=== PATIENT | male | born 1980 | race Caucasian/White ===

== ENCOUNTER 2016-11-27 13:56 | Inpatient (IN) | payer MEDICAID ==
[~2016-11-27] VITALS: Ht 185.4 cm; Wt 90.1 kg
[~2016-11-27 13:56] MED LIST: QUET200T PO
[2016-11-27] MEDS ORDERED: PROMETHAZINE HCL 25 MG TABLET PO PRN (16:30)
[2016-11-27] MEDS ORDERED: MAGNESIUM HYDROXIDE SUSPENSION 30 ML UDCUP PO PRN (16:30)
[2016-11-27] MEDS ORDERED: TUBERCULIN, PURIFIED PROTEIN DERIVATIVE 5 TU/0.1 ML SYG ID ONE (16:30)
[2016-11-27] MEDS ORDERED: ACETAMINOPHEN 325 MG TABLET PO PRN (16:30)
[2016-11-27] MEDS ORDERED: MAG HYDROX/AL HYDROX/SIMETH ES 30 ML SUSPENSION UDCUP PO PRN (16:30)
[2016-11-27] MEDS ORDERED: ZOLPIDEM TARTRATE 10 MG TABLET PO PRN (16:30)
[2016-11-27] MEDS ORDERED: GuaiFENesin/D-METHORPHAN [SUGAR-FREE] 200-20MG/10 ML SYRUP UDCUP PO PRN (16:30)
[2016-11-27] MEDS ORDERED: HydrOXYzine PAMOATE 50 MG CAPSULE PO PRN (16:30)
[2016-11-27] MEDS ORDERED: LOPERAMIDE HCL 2 MG CAPSULE PO PRN (16:30)
[2016-11-27] MEDS ORDERED: QUEtiapine FUMARATE 100 MG TABLET PO PRN (16:30)
[2016-11-27] MEDS ORDERED: INFLUENZA VIRUS VACCINE QVS 2016-17 (3YR+)/PF 60 MCG/0.5 ML SYRINGE IM ONE (17:00)
[2016-11-27 17:20] VITALS: BP 115/76
[2016-11-27] MEDS: THIAMINE HCL 100 MG TABLET PO SCH (17:23)
[2016-11-27] MEDS ORDERED: QUEtiapine FUMARATE 200 MG TABLET PO SCH (21:00)
[2016-11-28 05:30] VITALS: BP 123/75
[2016-11-28 08:02] LABS: BASOPHILS # (AUTO) 0.02 K/uL (0.00-0.20); BASOPHILS % (AUTO) 0.3 % (0.0-2.0); EOSINOPHILS # (AUTO) 0.09 K/uL (0.00-0.70); EOSINOPHILS % (AUTO) 1.15 % (1.0-6.0); HEMATOCRIT 44.6 % (41-53); HEMOGLOBIN 14.6 g/dL (13.5-17.5); LYMPHOCYTES # (AUTO) 1.8 K/uL (1.0-4.8); LYMPHOCYTES % (AUTO) 22.8 % (22.0-44.0); MEAN CORPUSCULAR HEMOGLOBIN 31.5 pg (26.0-34.0); MEAN CORPUSCULAR HGB CONC 32.7 G/dL (31.0-37.0); MEAN CORPUSCULAR VOLUME 96 fL (80-100); MONOCYTES # (AUTO) 0.8 K/uL (0.1-1.0); MONOCYTES % (AUTO) 9.6 % (2.0-9.0); NEUTROPHILS # (AUTO) 5.3 K/uL (1.8-7.7); NEUTROPHILS % (AUTO) 66.2 % (40.0-70.0); PLATELET COUNT (AUTO) 191 K/uL (150-450); RED BLOOD CELL COUNT(AUTO) 4.63 MIL/uL (4.50-5.90); RED CELL DISTRIBUTION WIDTH 14.4 % (11.5-14.5)
[2016-11-28 08:56] LABS: ALANINE AMINOTRANSFERASE 21 U/L (12-78); ALBUMIN 3.5 g/dL (3.4-5.0); ANION GAP 7 mmol/L (8-16); ASPARTATE AMINOTRANSFERASE 16 U/L (15-37); BILIRUBIN,TOTAL 0.4 mg/dL (0.1-1.0); CARBON DIOXIDE 30 mmol/L (22-29); CHLORIDE 104 mmol/L (98-107); CHOL/HDL RATIO 2.8 (4.2-7.3); CREATININE 1.09 mg/dL (0.60-1.30); GLOMERULAR FILTR. RATE CALC > 60 mL/min (>60); POTASSIUM 3.9 mmol/L (3.5-5.1); SODIUM SERUM 141 mmol/L (136-145); THYROID STIMULATING HORMONE 1.36 uIU/mL (0.36-3.74); TOTAL PROTEIN, SERUM 6.8 g/dL (6.4-8.2); UREA NITROGEN, BLOOD 13 mg/dL (7-18)
[2016-11-28] MEDS: THIAMINE HCL 100 MG TABLET PO SCH ×2 (09:05→16:06)
[2016-11-28] MEDS: FOLIC ACID 1 MG TABLET PO SCH (09:05)
[2016-11-28] MEDS: MULTIVITAMINS WITH MINERALS, THERAPEUTIC TABLET PO SCH (09:05)
[2016-11-28 09:35] VITALS: BP 114/76
[2016-11-28] MEDS ORDERED: RisperiDONE 1 MG TABLET PO PRN (10:15)
[2016-11-28] MEDS ORDERED: RisperiDONE 1 MG TABLET PO ONE (10:15)
[2016-11-28] MEDS: LORazepam 2 MG TABLET PO PRN ×3 (11:03→21:03)
[2016-11-28] MEDS ORDERED: RisperiDONE 1 MG TABLET PO SCH (13:00)
[2016-11-28] MEDS: MUPIROCIN CALCIUM 2% 15 GM CREAM TP SCH (16:06)
[2016-11-28 18:25] VITALS: BP 135/66
[2016-11-28] MEDS ORDERED: RisperiDONE 2 MG TABLET PO SCH (21:00)
[2016-11-29 00:31] VITALS: BP 106/60
[2016-11-29 08:41] VITALS: BP 104/60
[2016-11-29] MEDS: MULTIVITAMINS WITH MINERALS, THERAPEUTIC TABLET PO SCH (09:42)
[2016-11-29] MEDS: FOLIC ACID 1 MG TABLET PO SCH (09:42)
[2016-11-29] MEDS: THIAMINE HCL 100 MG TABLET PO SCH (09:42)
[2016-11-29] MEDS: MUPIROCIN CALCIUM 2% 15 GM CREAM TP SCH (09:45)
[2016-11-29] MEDS ORDERED: RISP2 PO (09:54)
[2016-11-29] MEDS ORDERED: MUPI15CR12 TP (09:54)
[2016-11-29] MEDS ORDERED: CEPH500 PO (09:54)
== END 2016-11-29 13:00 | disposition home or self-care (01) | DRG 750 ==
LOC: B2S 16:42
PROVIDERS: ADMIT Psychiatry & Neurology Psychiatry; ATTEND Psychiatry & Neurology Psychiatry
DX: F20.0 Paranoid schizophrenia (principal); R45.851 Suicidal ideations; Z91.19 Patient's noncompliance with other medical treatment and regimen; F12.90 Cannabis use, unspecified, uncomplicated; S81.801A Unspecified open wound, right lower leg, initial encounter; Z98.52 Vasectomy status; Z28.21 Immunization not carried out because of patient refusal; Z72.89 Other problems related to lifestyle; Z71.51 Drug abuse counseling and surveillance of drug abuser; Z71.41 Alcohol abuse counseling and surveillance of alcoholic; Z79.899 Other long term (current) drug therapy; Z81.8 Family history of other mental and behavioral disorders; X58.XXXA Exposure to other specified factors, initial encounter; Y93.89 Activity, other specified; Y92.89 Other specified places as the place of occurrence of the external cause; Y99.8 Other external cause status
CPT/HCPCS: 83036; 84439; 84443; 86592

== ENCOUNTER 2016-12-01 17:58 | Inpatient (IN) | payer MEDICAID ==
[~2016-12-01] VITALS: Ht 185.4 cm; Wt 89.8 kg
[~2016-12-01 17:58] MED LIST changes: +CEPH500 PO; +MUPI15CR12 TP; -QUET200T PO; +RISP2 PO
[2016-12-02] MEDS ORDERED: ZOLPIDEM TARTRATE 10 MG TABLET PO PRN (02:15)
[2016-12-02 03:20] VITALS: BP 139/77
[2016-12-02] MEDS ORDERED: INFLUENZA VIRUS VACCINE QVS 2016-17 (3YR+)/PF 60 MCG/0.5 ML SYRINGE IM ONE (04:15)
[2016-12-02 05:55] VITALS: BP 114/72
[2016-12-02] MEDS: LORazepam 2 MG TABLET PO PRN ×2 (06:00→12:38)
[2016-12-02 08:38] VITALS: BP 116/70
[2016-12-02] MEDS ORDERED: IBUPROFEN 600 MG TABLET PO PRN (09:00)
[2016-12-02] MEDS ORDERED: CloNIDine HCL 0.1 MG TABLET PO PRN (09:00)
[2016-12-02] MEDS ORDERED: BACITRACIN 28.4 GM OINTMENT TP PRN (09:00)
[2016-12-02] MEDS ORDERED: BENZOCAINE/MENTHOL LOZENGE MM PRN (09:00)
[2016-12-02] MEDS ORDERED: ONDANSETRON HCL 4 MG TABLET PO PRN (09:00)
[2016-12-02] MEDS ORDERED: PETROLATUM,WHITE 71 GM JELLY TP PRN (09:00)
[2016-12-02] MEDS ORDERED: MAGNESIUM HYDROXIDE SUSPENSION 30 ML UDCUP PO PRN (09:00)
[2016-12-02] MEDS ORDERED: ACETAMINOPHEN 325 MG TABLET PO PRN (09:00)
[2016-12-02] MEDS ORDERED: ALBUTEROL SULFATE HFA 90 MCG/PUFF 8 GM INHALER IH PRN (09:00)
[2016-12-02] MEDS ORDERED: MAG HYDROX/AL HYDROX/SIMETH ES 30 ML SUSPENSION UDCUP PO PRN (09:00)
[2016-12-02] MEDS ORDERED: LOPERAMIDE HCL 2 MG CAPSULE PO PRN (09:00)
[2016-12-02] MEDS: CEPHALEXIN MONOHYDRATE 500 MG CAPSULE PO SCH ×2 (10:12→16:38)
[2016-12-02 16:11] VITALS: BP 104/63
[2016-12-02] MEDS: DiphenhydrAMINE HCL 25 MG CAPSULE PO SCH (16:38)
[2016-12-02] MEDS: ILOPERIDONE 2 MG TABLET PO SCH (16:39)
[2016-12-03 06:46] VITALS: BP 120/84
[2016-12-03 08:45] VITALS: BP 103/66
[2016-12-03] MEDS: ILOPERIDONE 2 MG TABLET PO SCH ×2 (10:28→16:02)
[2016-12-03] MEDS: CEPHALEXIN MONOHYDRATE 500 MG CAPSULE PO SCH ×2 (10:29→16:02)
[2016-12-03] MEDS: DiphenhydrAMINE HCL 25 MG CAPSULE PO SCH ×2 (10:29→16:02)
[2016-12-03] MEDS: LORazepam 2 MG TABLET PO PRN ×2 (10:31→18:13)
[2016-12-03 16:53] VITALS: BP 110/65
[2016-12-04 01:06] VITALS: BP 110/68
[2016-12-04 08:37] VITALS: BP 136/80
[2016-12-04] MEDS: CEPHALEXIN MONOHYDRATE 500 MG CAPSULE PO SCH ×2 (08:42→16:37)
[2016-12-04] MEDS: ILOPERIDONE 2 MG TABLET PO SCH (08:42)
[2016-12-04] MEDS: DiphenhydrAMINE HCL 25 MG CAPSULE PO SCH ×2 (08:42→16:37)
[2016-12-04] MEDS: LORazepam 2 MG TABLET PO PRN ×2 (12:41→20:02)
[2016-12-04] MEDS ORDERED: HydrOXYzine PAMOATE 50 MG CAPSULE PO PRN (14:45)
[2016-12-04] MEDS ORDERED: LOPERAMIDE HCL 2 MG CAPSULE PO PRN (14:45)
[2016-12-04] MEDS ORDERED: GuaiFENesin/D-METHORPHAN [SUGAR-FREE] 200-20MG/10 ML SYRUP UDCUP PO PRN (14:45)
[2016-12-04 16:22] VITALS: BP 103/70
[2016-12-04] MEDS: THIAMINE HCL 100 MG TABLET PO SCH (16:37)
[2016-12-04] MEDS: ILOPERIDONE 4 MG TABLET PO SCH (21:46)
[2016-12-05 06:58] VITALS: BP 121/68
[2016-12-05 08:12] VITALS: BP 105/62
[2016-12-05] MEDS ORDERED: MULTIVITAMINS WITH MINERALS, THERAPEUTIC TABLET PO SCH (09:00)
[2016-12-05] MEDS ORDERED: FOLIC ACID 1 MG TABLET PO SCH (09:00)
[2016-12-05] MEDS ORDERED: NALTREXONE HCL 50 MG TABLET PO SCH (09:00)
[2016-12-05] MEDS: DiphenhydrAMINE HCL 25 MG CAPSULE PO SCH (10:11)
[2016-12-05] MEDS: ILOPERIDONE 4 MG TABLET PO SCH (10:11)
[2016-12-05] MEDS: THIAMINE HCL 100 MG TABLET PO SCH (10:12)
[2016-12-05] MEDS: CEPHALEXIN MONOHYDRATE 500 MG CAPSULE PO SCH (10:12)
[2016-12-05] MEDS ORDERED: DIPH25 PO (12:34)
[2016-12-05] MEDS ORDERED: ILOP4TAB2 PO (12:34)
== END 2016-12-05 15:30 | disposition home or self-care (01) | DRG 750 ==
LOC: B2S 12-02 02:17
PROVIDERS: ATTEND Psychiatry & Neurology Psychiatry
PROC: GZ51ZZZ Individual Psychotherapy, Behavioral (ICD-10-PCS; principal; 2016-12-05)
DX: F20.0 Paranoid schizophrenia (principal); R45.851 Suicidal ideations; Z91.19 Patient's noncompliance with other medical treatment and regimen; F17.200 Nicotine dependence, unspecified, uncomplicated; G47.00 Insomnia, unspecified; K59.00 Constipation, unspecified; L08.9 Local infection of the skin and subcutaneous tissue, unspecified; F41.9 Anxiety disorder, unspecified; W57.XXXA Bitten or stung by nonvenomous insect and other nonvenomous arthropods, initial encounter; Z78.9 Other specified health status; Z98.52 Vasectomy status; Z56.0 Unemployment, unspecified; Z28.21 Immunization not carried out because of patient refusal; Y93.89 Activity, other specified; Y92.89 Other specified places as the place of occurrence of the external cause; Y99.8 Other external cause status; Z79.899 Other long term (current) drug therapy
CPT/HCPCS: 87081

== ENCOUNTER 2017-02-03 10:46 | Inpatient (IN) | payer MEDICAID ==
[~2017-02-03] VITALS: Ht 185.4 cm; Wt 90.4 kg
[~2017-02-03 10:46] MED LIST changes: +DIPH25 PO; +ILOP4TAB2 PO; -MUPI15CR12 TP; -RISP2 PO
[2017-02-03] MEDS ORDERED: LOPERAMIDE HCL 2 MG CAPSULE PO PRN (13:00)
[2017-02-03] MEDS ORDERED: MAGNESIUM HYDROXIDE SUSPENSION 30 ML UDCUP PO PRN (13:00)
[2017-02-03] MEDS ORDERED: MAG HYDROX/AL HYDROX/SIMETH ES 30 ML SUSPENSION UDCUP PO PRN (13:00)
[2017-02-03 13:12] VITALS: BP 115/78
[2017-02-03] MEDS ORDERED: LORA2TAB2 PO (14:02)
[2017-02-03] MEDS ORDERED: CLON1 PO (14:02)
[2017-02-03] MEDS ORDERED: QUET200T PO (14:02)
[2017-02-03] MEDS ORDERED: PNEUMOCOCCAL VACCINE POLYVALENT 0.5 ML VIAL [PPSV23] IM ONE (16:15)
[2017-02-03 17:22] VITALS: BP 133/91
[2017-02-03] MEDS ORDERED: ILOPERIDONE 4 MG TABLET PO SCH (21:00)
[2017-02-04 05:24] VITALS: BP 128/81
[2017-02-04 08:12] LABS: BASOPHILS # (AUTO) 0.03 K/uL (0.00-0.20); BASOPHILS % (AUTO) 0.3 % (0.0-2.0); EOSINOPHILS # (AUTO) 0.04 K/uL (0.00-0.70); EOSINOPHILS % (AUTO) 0.46 % (1.0-6.0); HEMATOCRIT 47.2 % (41-53); HEMOGLOBIN 15.7 g/dL (13.5-17.5); LYMPHOCYTES # (AUTO) 2.3 K/uL (1.0-4.8); MEAN CORPUSCULAR HEMOGLOBIN 31.4 pg (26.0-34.0); MEAN CORPUSCULAR HGB CONC 33.3 G/dL (31.0-37.0); MEAN CORPUSCULAR VOLUME 94 fL (80-100); MONOCYTES # (AUTO) 0.9 K/uL (0.1-1.0); MONOCYTES % (AUTO) 9.5 % (2.0-9.0); NEUTROPHILS % (AUTO) 64.7 % (40.0-70.0); PLATELET COUNT (AUTO) 172 K/uL (150-450); RED BLOOD CELL COUNT(AUTO) 5.01 MIL/uL (4.50-5.90); WHITE BLOOD COUNT (AUTO) 9.3 K/uL (4.5-11.0)
[2017-02-04 08:26] VITALS: BP 103/71
[2017-02-04 09:13] LABS: ALANINE AMINOTRANSFERASE 25 U/L (12-78); ALBUMIN 3.9 g/dL (3.4-5.0); ANION GAP 6 mmol/L (8-16); ASPARTATE AMINOTRANSFERASE 18 U/L (15-37); BILIRUBIN,TOTAL 0.7 mg/dL (0.1-1.0); CALCIUM, TOTAL 9.3 mg/dL (8.8-10.5); CARBON DIOXIDE 31 mmol/L (22-29); CHLORIDE 103 mmol/L (98-107); CHOL/HDL RATIO 3.4 (4.2-7.3); CREATININE 1.19 mg/dL (0.60-1.30); GLOMERULAR FILTR. RATE CALC > 60 mL/min (>60); POTASSIUM 3.8 mmol/L (3.5-5.1); SODIUM SERUM 140 mmol/L (136-145); THYROID STIMULATING HORMONE 2.75 uIU/mL (0.36-3.74); TOTAL PROTEIN, SERUM 7.2 g/dL (6.4-8.2); UREA NITROGEN, BLOOD 10 mg/dL (7-18)
[2017-02-04] MEDS: LORazepam 2 MG TABLET PO PRN (10:57)
[2017-02-04] MEDS: ILOPERIDONE 4 MG TABLET PO SCH ×2 (12:03→21:08)
[2017-02-04 16:05] VITALS: BP 107/68
[2017-02-04] MEDS ORDERED: ACETAMINOPHEN 325 MG TABLET PO PRN (18:00)
[2017-02-04] MEDS ORDERED: IBUPROFEN 600 MG TABLET PO PRN (18:00)
[2017-02-04 18:02] VITALS: BP 124/69
[2017-02-04] MEDS: ZOLPIDEM TARTRATE 10 MG TABLET PO PRN (22:31)
[2017-02-05 05:36] VITALS: BP 119/79
[2017-02-05] MEDS: ILOPERIDONE 4 MG TABLET PO SCH ×2 (08:14→20:22)
[2017-02-05] MEDS: LORazepam 2 MG TABLET PO PRN ×3 (08:14→21:26)
[2017-02-05 08:29] VITALS: BP 112/69
[2017-02-05 16:00] VITALS: BP 117/73
[2017-02-05] MEDS: ZOLPIDEM TARTRATE 10 MG TABLET PO PRN (20:22)
[2017-02-05] MEDS ORDERED: ACETAMINOPHEN 325 MG TABLET PO PRN (21:00)
[2017-02-05] MEDS ORDERED: BENZOCAINE/MENTHOL LOZENGE MM PRN (21:00)
[2017-02-05] MEDS ORDERED: CloNIDine HCL 0.1 MG TABLET PO PRN (21:00)
[2017-02-05] MEDS ORDERED: PETROLATUM,WHITE 71 GM JELLY TP PRN (21:00)
[2017-02-05] MEDS ORDERED: ONDANSETRON HCL 4 MG TABLET PO PRN (21:00)
[2017-02-05] MEDS ORDERED: MAG HYDROX/AL HYDROX/SIMETH ES 30 ML SUSPENSION UDCUP PO PRN (21:00)
[2017-02-05] MEDS ORDERED: BACITRACIN 28.4 GM OINTMENT TP PRN (21:00)
[2017-02-05] MEDS ORDERED: LOPERAMIDE HCL 2 MG CAPSULE PO PRN (21:00)
[2017-02-05] MEDS ORDERED: MAGNESIUM HYDROXIDE SUSPENSION 30 ML UDCUP PO PRN (21:00)
[2017-02-05] MEDS ORDERED: IBUPROFEN 600 MG TABLET PO PRN (21:00)
[2017-02-05] MEDS ORDERED: ALBUTEROL SULFATE HFA 90 MCG/PUFF 8 GM INHALER IH PRN (21:00)
[2017-02-06] MEDS: LORazepam 2 MG TABLET PO PRN ×2 (07:09→13:43)
[2017-02-06 07:20] VITALS: BP 127/74
[2017-02-06 08:13] VITALS: BP 113/62
[2017-02-06] MEDS ORDERED: DOCUSATE SODIUM 100 MG CAPSULE PO SCH (09:00)
[2017-02-06] MEDS ORDERED: OMEPRAZOLE 20 MG CAPSULE PO SCH (09:00)
[2017-02-06] MEDS: ILOPERIDONE 4 MG TABLET PO SCH (09:20)
[2017-02-06] MEDS ORDERED: ILOP4TAB2 PO (12:00)
[2017-02-06] MEDS ORDERED: DSS100 PO (12:00)
[2017-02-06] MEDS ORDERED: OMEP20 PO (12:00)
== END 2017-02-06 14:35 | disposition home or self-care (01) | DRG 750 ==
LOC: B3A 13:30 → EDSTATUS 14:29 → B3A 20:41
PROVIDERS: ADMIT Psychiatry & Neurology Child & Adolescent Psychiatry; ATTEND Psychiatry & Neurology Child & Adolescent Psychiatry
DX: F20.0 Paranoid schizophrenia (principal); R45.851 Suicidal ideations; F41.9 Anxiety disorder, unspecified; T14.8 Other injury of unspecified body region; K59.00 Constipation, unspecified; F12.90 Cannabis use, unspecified, uncomplicated; W57.XXXA Bitten or stung by nonvenomous insect and other nonvenomous arthropods, initial encounter; Y93.89 Activity, other specified; Y92.89 Other specified places as the place of occurrence of the external cause; Y99.8 Other external cause status; Z79.899 Other long term (current) drug therapy; Z72.89 Other problems related to lifestyle; Z71.41 Alcohol abuse counseling and surveillance of alcoholic; Z71.51 Drug abuse counseling and surveillance of drug abuser; Z28.21 Immunization not carried out because of patient refusal
CPT/HCPCS: 84439; 84443

== ENCOUNTER 2017-02-07 22:43 | Inpatient (IN) | payer MEDICAID ==
[~2017-02-07] VITALS: Ht 185.4 cm; Wt 92.1 kg
[~2017-02-07 22:43] MED LIST changes: -CEPH500 PO; -DIPH25 PO; +DSS100 PO; +OMEP20 PO
[2017-02-07 23:56] VITALS: BP 124/82
[2017-02-08 00:20] VITALS: BP 130/77
[2017-02-08] MEDS: ZOLPIDEM TARTRATE 10 MG TABLET PO PRN ×2 (00:42→20:37)
[2017-02-08] MEDS: LORazepam 2 MG TABLET PO PRN ×3 (07:04→18:48)
[2017-02-08 07:40] LABS: BASOPHILS % (AUTO) 0.3 % (0.0-2.0); EOSINOPHILS % (AUTO) 2.6 % (1.0-6.0); HEMATOCRIT 47.5 % (41-53); HEMOGLOBIN 15.3 g/dL (13.5-17.5); LYMPHOCYTES # (AUTO) 2.4 K/uL (1.0-4.8); LYMPHOCYTES % (AUTO) 28.7 % (22.0-44.0); MEAN CORPUSCULAR HEMOGLOBIN 31.2 pg (26.0-34.0); MEAN CORPUSCULAR HGB CONC 32.2 G/dL (31.0-37.0); MEAN CORPUSCULAR VOLUME 97 fL (80-100); MONOCYTES # (AUTO) 0.8 K/uL (0.1-1.0); MONOCYTES % (AUTO) 9.7 % (2.0-9.0); NEUTROPHILS # (AUTO) 4.9 K/uL (1.8-7.7); NEUTROPHILS % (AUTO) 58.7 % (40.0-70.0); PLATELET COUNT (AUTO) 172 K/uL (150-450); WHITE BLOOD COUNT (AUTO) 8.4 K/uL (4.5-11.0)
[2017-02-08 08:10] LABS: HEMOGLOBIN A1C 5.6 % (4.5-6.2)
[2017-02-08 08:23] LABS: ALANINE AMINOTRANSFERASE 27 U/L (12-78); ANION GAP 6 mmol/L (8-16); ASPARTATE AMINOTRANSFERASE 20 U/L (15-37); BILIRUBIN,TOTAL 0.6 mg/dL (0.1-1.0); CALCIUM, TOTAL 9.3 mg/dL (8.8-10.5); CARBON DIOXIDE 32 mmol/L (22-29); CHLORIDE 103 mmol/L (98-107); CHOL/HDL RATIO 2.6 (4.2-7.3); CREATININE 1.22 mg/dL (0.60-1.30); GLOMERULAR FILTR. RATE CALC > 60 mL/min (>60); POTASSIUM 3.9 mmol/L (3.5-5.1); SODIUM SERUM 141 mmol/L (136-145); THYROID STIMULATING HORMONE 3.22 uIU/mL (0.36-3.74); TOTAL PROTEIN, SERUM 7.4 g/dL (6.4-8.2); UREA NITROGEN, BLOOD 11 mg/dL (7-18)
[2017-02-08 10:25] VITALS: BP 107/73
[2017-02-08] MEDS: ILOPERIDONE 4 MG TABLET PO SCH ×2 (12:30→20:36)
[2017-02-08 17:46] VITALS: BP 113/64
[2017-02-09 06:33] VITALS: BP 103/66
[2017-02-09] MEDS: ILOPERIDONE 4 MG TABLET PO SCH (08:09)
[2017-02-09] MEDS: LORazepam 2 MG TABLET PO PRN ×3 (08:09→15:12)
[2017-02-09 08:26] VITALS: BP 102/70
[2017-02-09 16:18] VITALS: BP 112/74
== END 2017-02-09 19:35 | disposition home or self-care (01) | DRG 750 ==
LOC: B3A 23:38 → EDSTATUS 23:57
PROVIDERS: ADMIT Psychiatry & Neurology Child & Adolescent Psychiatry; ATTEND Psychiatry & Neurology Child & Adolescent Psychiatry
DX: F25.1 Schizoaffective disorder, depressive type (principal); R45.851 Suicidal ideations
CPT/HCPCS: 83036; 84439; 84443; 87081

== ENCOUNTER 2017-06-17 06:50 | Inpatient (IN) | payer MEDICAID ==
[~2017-06-17] VITALS: Ht 185.4 cm; Wt 96.6 kg
[~2017-06-17 06:50] MED LIST changes: -DSS100 PO; -OMEP20 PO
[2017-06-17 12:29] VITALS: BP 111/72
[2017-06-17 12:47] VITALS: BP 132/82
[2017-06-17] MEDS: LORazepam 2 MG TABLET PO PRN ×2 (13:19→19:09)
[2017-06-17 16:00] VITALS: BP 118/74
[2017-06-17] MEDS: ZOLPIDEM TARTRATE 10 MG TABLET PO PRN (20:32)
[2017-06-17] MEDS: ILOPERIDONE 4 MG TABLET PO SCH (20:32)
[2017-06-17] MEDS: GuaiFENesin/D-METHORPHAN [SUGAR-FREE] 200-20MG/10 ML SYRUP UDCUP PO PRN (20:32)
[2017-06-18 06:19] VITALS: BP 108/62
[2017-06-18 08:12] VITALS: BP 116/60
[2017-06-18] MEDS: OMEPRAZOLE 20 MG CAPSULE PO SCH (08:41)
[2017-06-18] MEDS: NICOTINE 21 MG/24 HOUR PATCH TD SCH (08:41)
[2017-06-18] MEDS: ILOPERIDONE 4 MG TABLET PO SCH ×2 (08:41→20:25)
[2017-06-18 09:03] LABS: ALBUMIN 4.2 g/dL (3.4-5.0); BILIRUBIN,TOTAL 0.6 mg/dL (0.1-1.0); CALCIUM, TOTAL 9.6 mg/dL (8.8-10.5); CHOL/HDL RATIO 3.8 (4.2-7.3); CREATININE 1.35 mg/dL (0.60-1.30); POTASSIUM 3.8 mmol/L (3.5-5.1); THYROID STIMULATING HORMONE 2.24 uIU/mL (0.36-3.74); TOTAL PROTEIN, SERUM 8.2 g/dL (6.4-8.2)
[2017-06-18] MEDS: GuaiFENesin/D-METHORPHAN [SUGAR-FREE] 200-20MG/10 ML SYRUP UDCUP PO PRN ×3 (09:24→20:26)
[2017-06-18] MEDS: LORazepam 2 MG TABLET PO PRN ×3 (09:24→20:25)
[2017-06-18] MEDS: LITHIUM CARBONATE 300 MG CAPSULE PO SCH (12:37)
[2017-06-18 16:00] VITALS: BP 121/74
[2017-06-18] MEDS: ZOLPIDEM TARTRATE 10 MG TABLET PO PRN (20:26)
[2017-06-19 01:40] VITALS: BP 109/70
[2017-06-19] MEDS: LORazepam 2 MG TABLET PO PRN ×2 (04:31→10:50)
[2017-06-19 08:22] LABS: BASOPHILS % (AUTO) 0.3 % (0.0-2.0); EOSINOPHILS % (AUTO) 1.2 % (1.0-6.0); HEMATOCRIT 50.1 % (41-53); LYMPHOCYTES # (AUTO) 2.4 K/uL (1.0-4.8); LYMPHOCYTES % (AUTO) 25.2 % (22.0-44.0); MEAN CORPUSCULAR VOLUME 97 fL (80-100); MONOCYTES # (AUTO) 0.7 K/uL (0.1-1.0); MONOCYTES % (AUTO) 7.7 % (2.0-9.0); NEUTROPHILS # (AUTO) 6.1 K/uL (1.8-7.7); NEUTROPHILS % (AUTO) 65.6 % (40.0-70.0); PLATELET COUNT (AUTO) 183 K/uL (150-450); RED BLOOD CELL COUNT(AUTO) 5.16 MIL/uL (4.50-5.90); RED CELL DISTRIBUTION WIDTH 13.5 % (11.5-14.5); WHITE BLOOD COUNT (AUTO) 9.3 K/uL (4.5-11.0)
[2017-06-19 08:31] VITALS: BP 109/73
[2017-06-19] MEDS: NICOTINE 21 MG/24 HOUR PATCH TD SCH (08:39)
[2017-06-19] MEDS: OMEPRAZOLE 20 MG CAPSULE PO SCH (08:39)
[2017-06-19] MEDS: ILOPERIDONE 4 MG TABLET PO SCH (08:39)
[2017-06-19] MEDS: LITHIUM CARBONATE 300 MG CAPSULE PO SCH (09:06)
[2017-06-19] MEDS: GuaiFENesin/D-METHORPHAN [SUGAR-FREE] 200-20MG/10 ML SYRUP UDCUP PO PRN (13:05)
[2017-06-19] MEDS ORDERED: OMEP20 PO (14:38)
[2017-06-19] MEDS ORDERED: LITH300C3 PO (14:38)
[2017-06-19 16:19] VITALS: BP 110/87
== END 2017-06-19 16:50 | disposition home or self-care (01) | DRG 750 ==
LOC: B3A 12:24 → EDSTATUS 12:27
PROVIDERS: ADMIT Psychiatry & Neurology Child & Adolescent Psychiatry; ATTEND Psychiatry & Neurology Child & Adolescent Psychiatry
DX: F25.0 Schizoaffective disorder, bipolar type (principal); F41.9 Anxiety disorder, unspecified; Z79.899 Other long term (current) drug therapy; R12 Heartburn
CPT/HCPCS: 84439; 84443

== ENCOUNTER 2017-10-14 08:03 | Inpatient (IN) | payer MEDICAID, OTHER ==
[~2017-10-14] VITALS: Ht 175.3 cm; Wt 97.1 kg
[~2017-10-14 08:03] MED LIST changes: +LITH300C3 PO; +OMEP20 PO; +ZOLPIDEM TARTRATE 10 MG TABLET PO PRN
[2017-10-14] MEDS ORDERED: LORA0.5T2 PO (08:38)
[2017-10-14 09:20] LABS: CALCIUM, TOTAL 9.4 mg/dL (8.8-10.5); CREATININE 1.36 mg/dL (0.60-1.30); POTASSIUM 4.1 mmol/L (3.5-5.1)
[2017-10-14 09:26] LABS: ALBUMIN 4.2 g/dL (3.4-5.0); BILIRUBIN,TOTAL 0.7 mg/dL (0.1-1.0); TOTAL PROTEIN, SERUM 8.1 g/dL (6.4-8.2)
[2017-10-14 09:30] LABS: BASOPHILS # (AUTO) 0.04 K/uL (0.00-0.20); BASOPHILS % (AUTO) 0.4 % (0.0-2.0); EOSINOPHILS # (AUTO) 0.05 K/uL (0.00-0.70); EOSINOPHILS % (AUTO) 0.57 % (1.0-6.0); HEMATOCRIT 52.3 % (41-53); HEMOGLOBIN 17.2 g/dL (13.5-17.5); LYMPHOCYTES % (AUTO) 21.5 % (22.0-44.0); MEAN CORPUSCULAR HEMOGLOBIN 32.3 pg (26.0-34.0); MEAN CORPUSCULAR VOLUME 98 fL (80-100); MONOCYTES # (AUTO) 0.6 K/uL (0.1-1.0); MONOCYTES % (AUTO) 6.2 % (2.0-9.0); NEUTROPHILS # (AUTO) 6.6 K/uL (1.8-7.7); NEUTROPHILS % (AUTO) 71.4 % (40.0-70.0); PLATELET COUNT (AUTO) 181 K/uL (150-450); RED BLOOD CELL COUNT(AUTO) 5.33 MIL/uL (4.50-5.90); RED CELL DISTRIBUTION WIDTH 13.4 % (11.5-14.5); WHITE BLOOD COUNT (AUTO) 9.3 K/uL (4.5-11.0)
[2017-10-14 12:16] VITALS: BP 128/78
[2017-10-14] MEDS: LORazepam 2 MG TABLET PO PRN ×2 (13:12→18:00)
[2017-10-14 16:47] VITALS: BP 114/74
[2017-10-15 00:24] VITALS: BP 115/72
[2017-10-15] MEDS: LORazepam 2 MG TABLET PO PRN ×3 (00:24→14:12)
[2017-10-15 08:00] VITALS: BP 100/68
[2017-10-15] MEDS: RisperiDONE 1 MG TABLET PO SCH ×2 (09:00→17:00)
[2017-10-15] MEDS: DIVALPROEX SODIUM 500 MG DR TABLET PO SCH ×2 (09:00→17:00)
[2017-10-15] MEDS: LITHIUM CARBONATE 300 MG CAPSULE PO SCH ×2 (09:00→17:00)
[2017-10-15 10:03] LABS: APPEARANCE,URINE CLEAR (CLEAR); GLUCOSE, URINE (UA) NEGATIVE (NEGATIVE); KETONES,URINE NEGATIVE (NEGATIVE); LEUKOCYTE ESTERASE ,URINE NEGATIVE (NEGATIVE); OCCULT BLOOD,URINE NEGATIVE (NEGATIVE); PROTEIN,URINE NEGATIVE (NEGATIVE)
[2017-10-15 10:06] LABS: ADD UA MICROSCOPIC NO
[2017-10-15 16:15] VITALS: BP 112/68
[2017-10-16] MEDS: LORazepam 2 MG TABLET PO PRN ×2 (01:51→07:54)
[2017-10-16 01:52] VITALS: BP 111/75
[2017-10-16] MEDS: DIVALPROEX SODIUM 500 MG DR TABLET PO SCH (09:00)
[2017-10-16] MEDS: RisperiDONE 1 MG TABLET PO SCH (09:00)
[2017-10-16] MEDS: LITHIUM CARBONATE 300 MG CAPSULE PO SCH (09:00)
[2017-10-16 10:41] VITALS: BP 117/78
[2017-10-16] MEDS ORDERED: DIVA500T35 PO (11:13)
[2017-10-16] MEDS ORDERED: RISP1 PO (11:14)
== END 2017-10-16 12:30 | disposition home or self-care (01) | DRG 750 ==
LOC: BV PSY EVL 08:03 → 3EI 10:39 → BV PSY EVL 11:35
PROVIDERS: ADMIT Psychiatry & Neurology Psychiatry; ATTEND Psychiatry & Neurology Psychiatry
DX: F25.9 Schizoaffective disorder, unspecified (principal); R45.851 Suicidal ideations; N18.9 Chronic kidney disease, unspecified; Z79.899 Other long term (current) drug therapy
CPT/HCPCS: 99285; G0480

== ENCOUNTER 2024-12-27 00:24 | Inpatient (IN) | payer MEDICAID ==
[~2024-12-27] VITALS: Ht 172.7 cm; Wt 89.8 kg
[~2024-12-27 00:24] MED LIST changes: +DIVA-112 PO; -ILOP4TAB2 PO; -OMEP20 PO; +RISP1TAB48 PO; -ZOLPIDEM TARTRATE 10 MG TABLET PO PRN
[2024-12-27] MEDS ORDERED: LORazepam 2 MG TABLET ONE (22:28)
[2024-12-27] MEDS ORDERED: HALOPERIDOL 5 MG TABLET PO PRN (22:30)
[2024-12-27] MEDS ORDERED: LORazepam 2 MG TABLET PO ONE (22:30)
[2024-12-27 23:32] VITALS: BP 144/86; PULSE 96; RESP 18; TEMP 98.4; O2SAT 97
[2024-12-27] MEDS ORDERED: INFLUENZA VIRUS VACCINE TVS (6MO+) 2024-25/PF 45 MCG/0.5 ML SYRINGE IM. ONE (23:45)
[2024-12-27] MEDS ORDERED: PNEUMOCOCCAL VACCINE POLYVALENT 0.5 ML SYRINGE [PPSV23] IM. ONE (23:45)
[2024-12-28 12:16] LABS: BASOPHILS % (AUTO) 0.7 % (0.0-2.0); EOSINOPHILS % (AUTO) 1.7 % (1.0-6.0); HEMATOCRIT 44.2 % (41-53); HEMOGLOBIN 14.9 g/dL (13.5-17.5); LYMPHOCYTES # (AUTO) 1.8 K/uL (1.0-4.8); LYMPHOCYTES % (AUTO) 24.4 % (22.0-44.0); MEAN CORPUSCULAR HEMOGLOBIN 33.6 pg (26.0-34.0); MEAN CORPUSCULAR HGB CONC 33.7 G/dL (31.0-37.0); MEAN CORPUSCULAR VOLUME 100 fL (80-100); MONOCYTES # (AUTO) 0.6 K/uL (0.1-1.0); MONOCYTES % (AUTO) 8.1 % (2.0-9.0); NEUTROPHILS # (AUTO) 4.8 K/uL (1.8-7.7); NEUTROPHILS % (AUTO) 65.1 % (40.0-70.0); PLATELET COUNT (AUTO) 181 K/uL (150-450); RED BLOOD CELL COUNT(AUTO) 4.44 MIL/uL (4.50-5.90); RED CELL DISTRIBUTION WIDTH 12.7 % (11.5-14.5); WHITE BLOOD COUNT (AUTO) 7.4 K/uL (4.5-11.0)
[2024-12-28 12:29] LABS: ALANINE AMINOTRANSFERASE 32 U/L (12-78); ALBUMIN 3.5 g/dL (3.4-5.0); ALKALINE PHOSPHATASE 65 U/L (46-116); ANION GAP 5 mmol/L (8-16); ASPARTATE AMINOTRANSFERASE 18 U/L (15-37); BILIRUBIN,TOTAL 0.4 mg/dL (0.1-1.0); CALCIUM, TOTAL 8.9 mg/dL (8.8-10.5); CARBON DIOXIDE 29 mmol/L (22-29); CHLORIDE 105 mmol/L (98-107); GLOMERULAR FILTR. RATE CALC > 60 mL/min (>60); GLUCOSE,RANDOM 118 mg/dL (70-110); POTASSIUM 3.8 mmol/L (3.5-5.1); SODIUM SERUM 139 mmol/L (136-145); TOTAL PROTEIN, SERUM 6.7 g/dL (6.4-8.2); UREA NITROGEN, BLOOD 8 mg/dL (7-18)
[2024-12-29] MEDS ORDERED: INFLUENZA VIRUS VACCINE TVS (6MO+) 2024-25/PF 45 MCG/0.5 ML SYRINGE IM. ONE (02:45)
[2024-12-29 03:35] VITALS: BP 124/68; PULSE 72; RESP 18; TEMP 97.4; O2SAT 97
[2024-12-29] MEDS: LORazepam 2 MG TABLET PO PRN (03:53)
[2024-12-29 09:38] VITALS: BP 106/71; RESP 17; TEMP 98; O2SAT 97
[2024-12-29] MEDS ORDERED: IBUPROFEN 400 MG TABLET PO PRN (12:45)
[2024-12-29] MEDS ORDERED: ALBUTEROL SULFATE HFA 90 MCG/PUFF 8 GM INHALER IH PRN (12:45)
[2024-12-29] MEDS ORDERED: CloNIDine HCL 0.1 MG TABLET PO PRN (12:45)
[2024-12-29] MEDS ORDERED: GuaiFENesin/D-METHORPHAN [SUGAR-FREE] 200-20MG/10 ML SYRUP UDCUP PO PRN (12:45)
[2024-12-29] MEDS ORDERED: DOCUSATE SODIUM 100 MG CAPSULE PO PRN (12:45)
[2024-12-29] MEDS ORDERED: ONDANSETRON 4 MG TABLET PO PRN (12:45)
[2024-12-29] MEDS ORDERED: MAGNESIUM HYDROXIDE SUSPENSION 30 ML UDCUP PO PRN (12:45)
[2024-12-29] MEDS ORDERED: MAG HYDROX/ALUMINUM HYD/SIMETH ES 30 ML SUSPENSION UDCUP PO PRN (12:45)
[2024-12-29] MEDS ORDERED: ACETAMINOPHEN 325 MG TABLET PO PRN (12:45)
[2024-12-29] MEDS ORDERED: PETROLATUM,WHITE 28 GM JELLY TP PRN (12:45)
[2024-12-29] MEDS ORDERED: LOPERAMIDE HCL 2 MG CAPSULE PO PRN (12:45)
[2024-12-29] MEDS: LITHIUM CARBONATE 300 MG CAPSULE PO SCH (16:45)
[2024-12-29] MEDS: DIVALPROEX SODIUM 500 MG DR TABLET PO SCH (16:45)
[2024-12-29] MEDS: RisperiDONE 1 MG TABLET PO SCH (16:45)
[2024-12-29] MEDS ORDERED: OLAN20TA82 PO (17:06)
[2024-12-29] MEDS ORDERED: FLUO-418 PO (17:06)
[2024-12-29] MEDS: NICOTINE 14 MG/24 HOUR PATCH TD PRN (17:48)
[2024-12-29] MEDS: OLANZapine 10 MG TABLET PO SCH (21:59)
[2024-12-29 22:19] VITALS: BP 130/80; PULSE 103; RESP 18; TEMP 97.7; O2SAT 96
[2024-12-30] MEDS: FLUoxetine HCL 20 MG CAPSULE PO SCH (08:45)
[2024-12-30 08:47] LABS: HEMOGLOBIN A1C 5.2 % (3.8-5.6)
[2024-12-30 09:01] LABS: THYROID STIMULATING HORMONE 3.68 uIU/mL (0.36-3.74)
[2024-12-30 09:05] VITALS: BP 109/70; PULSE 99; RESP 18; TEMP 97; O2SAT 97
[2024-12-30 09:11] LABS: GLUCOMETER DEV NAME(LOC) POC.BV; POC SARS-COV2 AG, FIA NEGATIVE (NEGATIVE)
[2024-12-30 09:50] LABS: CHOL/HDL RATIO 2.6 (4.2-7.3)
[2024-12-30] MEDS: ZOLPIDEM TARTRATE 10 MG TABLET PO PRN (21:43)
[2024-12-30 23:06] VITALS: BP 118/96; PULSE 97; RESP 18; TEMP 97.5; O2SAT 98
[2024-12-31] MEDS ORDERED: OLAN10TA74 PO (08:14)
[2024-12-31 08:18] VITALS: BP 131/81; PULSE 91; RESP 16; TEMP 97.5; O2SAT 98
[2025-01-01] MEDS ORDERED: OLAN10TA74 PO (04:58)
[2025-01-01] MEDS ORDERED: FLUO-418 PO (04:58)
== END 2024-12-31 13:30 | disposition home or self-care (01) | DRG 750 ==
LOC: 3EI 12-29 01:43
PROVIDERS: ADMIT Psychiatry & Neurology Psychiatry; ATTEND Psychiatry & Neurology Psychiatry
PROC: GZHZZZZ Group Psychotherapy (ICD-10-PCS; principal; 2024-12-29)
PROC: GZ52ZZZ Individual Psychotherapy, Cognitive (ICD-10-PCS; 2024-12-30)
DX: F25.1 Schizoaffective disorder, depressive type (principal); R45.851 Suicidal ideations; F29 Unspecified psychosis not due to a substance or known physiological condition; G47.00 Insomnia, unspecified; Z20.822 Contact with and (suspected) exposure to COVID-19; F10.10 Alcohol abuse, uncomplicated; F19.10 Other psychoactive substance abuse, uncomplicated; I10 Essential (primary) hypertension; K21.9 Gastro-esophageal reflux disease without esophagitis; R73.9 Hyperglycemia, unspecified; Z79.899 Other long term (current) drug therapy
CPT/HCPCS: 80053; 80061; 83036; 84443; 85025; 86592

== ENCOUNTER 2024-12-27 23:40 | Emergency (ER) | payer MEDICAID, OTHER ==
[~2024-12-27] VITALS: Ht 182.9 cm; Wt 100.0 kg
[2024-12-28 00:39] LABS: BASOPHILS % (AUTO) 0.7 % (0.0-2.0); EOSINOPHILS % (AUTO) 2.1 % (1.0-6.0); HEMATOCRIT 43.4 % (41-53); LYMPHOCYTES # (AUTO) 2.1 K/uL (1.0-4.8); LYMPHOCYTES % (AUTO) 25.7 % (22.0-44.0); MEAN CORPUSCULAR HEMOGLOBIN 33.8 pg (26.0-34.0); MEAN CORPUSCULAR HGB CONC 34.4 G/dL (31.0-37.0); MEAN CORPUSCULAR VOLUME 98 fL (80-100); MONOCYTES # (AUTO) 0.8 K/uL (0.1-1.0); MONOCYTES % (AUTO) 9.3 % (2.0-9.0); NEUTROPHILS # (AUTO) 5.1 K/uL (1.8-7.7); NEUTROPHILS % (AUTO) 62.2 % (40.0-70.0); PLATELET COUNT (AUTO) 196 K/uL (150-450); RED BLOOD CELL COUNT(AUTO) 4.43 MIL/uL (4.50-5.90); RED CELL DISTRIBUTION WIDTH 12.7 % (11.5-14.5); WHITE BLOOD COUNT (AUTO) 8.3 K/uL (4.5-11.0)
[2024-12-28 00:42] LABS: ANION GAP 7 mmol/L (8-16); CARBON DIOXIDE 28 mmol/L (22-29); CHLORIDE 105 mmol/L (98-107); CREATININE 0.98 mg/dL (0.60-1.30); GLOMERULAR FILTR. RATE CALC > 60 mL/min (>60); GLUCOSE,RANDOM 88 mg/dL (70-110); POTASSIUM 3.7 mmol/L (3.5-5.1); SODIUM SERUM 140 mmol/L (136-145); UREA NITROGEN, BLOOD 7 mg/dL (7-18)
[2024-12-28 00:50] LABS: ALCOHOL, BLOOD (SERUM) < 3 mg/dL (0-10)
[2024-12-28 01:54] LABS: COVID AG,FIA SOURCE NASAL SWAB
[2024-12-28 03:09] LABS: APPEARANCE,URINE CLEAR (CLEAR); BILIRUBIN,URINE NEGATIVE (NEGATIVE); COLOR,URINE COLORLESS (YELLOW); GLUCOSE, URINE (UA) NEGATIVE (NEGATIVE); KETONES,URINE NEGATIVE (NEGATIVE); LEUKOCYTE ESTERASE ,URINE NEGATIVE (NEGATIVE); NITRATE,URINE NEGATIVE (NEGATIVE); OCCULT BLOOD,URINE NEGATIVE (NEGATIVE); PROTEIN,URINE NEGATIVE (NEGATIVE); SPECIFIC GRAVITIY, URINE 1.007 (1.003-1.030); UROBILINOGEN,URINE <=1.0 mg/dL (<=1.0)
[2024-12-28 03:11] LABS: SARS-COV2 (COVID) ANTIGEN,FIA Negative (Negative)
[2024-12-28 03:15] LABS: AMPHET/METH SCREEN,URINE NEGATIVE (NEGATIVE); BARBITURATE SCREEN, URINE NEGATIVE (NEGATIVE); BENZODIAZEPINES SCREEN,URINE NEGATIVE (NEGATIVE); CANNABINOID SCREEN,URINE POSITIVE (NEGATIVE); COCAINE SCREEN,URINE NEGATIVE (NEGATIVE); METHADONE SCREEN, URINE NEGATIVE (NEGATIVE); OPIATE SCREEN,URINE NEGATIVE (NEGATIVE); PHENCYCLIDINE SCREEN,URINE NEGATIVE (NEGATIVE)
[2024-12-28 03:22] LABS: ALCOHOL, URINE DRUG SCREEN NEGATIVE (NEGATIVE)
[2024-12-28] MEDS: LORazepam 1 MG TABLET PO ONE (05:17)
[2024-12-28] MEDS: LORazepam 2 MG TABLET PO ONE (09:08)
[2024-12-28] MEDS: DiphenhydrAMINE HCL 50 MG/ML VIAL IM ONE (15:52)
[2024-12-28] MEDS: LORazepam 2 MG/ML VIAL IM ONE (15:52)
[2024-12-28] MEDS: HALOPERIDOL LACTATE 5 MG/ML VIAL IM ONE (15:52)
[2024-12-28 19:15] VITALS: BP 167/120; PULSE 104; RESP 18; TEMP 97.9; O2SAT 99
[2024-12-29] MEDS ORDERED: FLUO-418 PO (17:06)
[2024-12-29] MEDS ORDERED: OLAN20TA82 PO (17:06)
[2025-01-01] MEDS ORDERED: OLAN10TA74 PO (04:58)
[2025-01-01] MEDS ORDERED: FLUO-418 PO (04:58)
== END 2024-12-28 01:07 | disposition admitted as inpatient to this hospital (09) ==
LOC: EMS 23:40
DX: F32.9 Major depressive disorder, single episode, unspecified (principal); R45.851 Suicidal ideations; F20.9 Schizophrenia, unspecified; F41.9 Anxiety disorder, unspecified; Z79.899 Other long term (current) drug therapy; Z20.822 Contact with and (suspected) exposure to COVID-19
CPT/HCPCS: 99285; 87426; 80048; 85025; 36415; 80307; 81003; 96372; G0480; J1200; J1630; J2060